=== PATIENT | female | born 1950 | race African-American/Black ===

== ENCOUNTER → 2016-10-07 | Day surgery (SDC) | payer BC ==
[~2016-10-07] MED LIST: AMLODIPINE BESYL5 MG; FLEXERIL10 MG; HYDROCODON-ACE1 EAC5 PO; IBUPROFEN800 MG PO; MULTIPLE VITAM1 EAC1; PRAVASTATIN SOD10 MG PO; PRINIVIL20 M1 PO; [UNRECOGNIZED DRUG - OTHER] PO
--- NOTE | ~2016-10-07 | OR ---
Unit #: [id number] #: [id number] Patient: GREGG PORRAS [id number] [address] [place], [place] [address] [id number] O MR#: [id number] NAME: GREGG PORRAS ROOM: Date of Procedure: 10/07/2016 Admission Date: 10/07/2016 Surgeon: Gee North M.D. : 1950 Attending Physician: Gee North M.D. Referring Physician: Gee North M.D. Primary Care Physician: Caroline Rich OPERATIVE REPORT PROCEDURE PERFORMED Colonoscopy with snare polypectomy. INDICATIONS FOR PROCEDURE The patient with positive FIT test. MEDICATIONS Monitored anesthesia. POSTOPERATIVE FINDINGS 1. Small polyp, 5 mm, sigmoid colon, snared and sent for histopathology. 2. Rest of the colon exam to cecum was normal. 3. Prep was adequate. PLAN Follow up on the pathology report. Repeat colonoscopy in 5 years. DESCRIPTION OF PROCEDURE The patient was explained of the procedure, risks, and benefits along with risks and benefits of anesthesia. She was brought to the endoscopy room. Propofol anesthesia was given. Rectal exam was done, which was normal. Colonoscope was lubricated, passed up the rectum, advanced under direct vision all the way to the cecum. Cecum was identified by ileocecal valve and appendiceal orifice. I then started to pull the scope out carefully looking. Polyp in sigmoid colon was snared and sent for histopathology. I retroflexed in the rectum, small hemorrhoids seen. The scope was gently pulled out. She tolerated it well. Dictated by... Lou Vallecillo/new TD: 10/07/2016 19:23 JOB #: [id number] Unit #: [id number] #: [id number] Patient: GREGG PORRAS OPERATIVE REPORT Page 1 of 1 X Gee North MD PROCEDURE OPERATIVE NOTE
== END | disposition home or self-care (01) ==
LOC: COPS 11:01
DX: D12.5 Benign neoplasm of sigmoid colon (principal); K64.9 Unspecified hemorrhoids; I10 Essential (primary) hypertension; F17.210 Nicotine dependence, cigarettes, uncomplicated; Z87.01 Personal history of pneumonia (recurrent); Z79.899 Other long term (current) drug therapy; Z96.653 Presence of artificial knee joint, bilateral; Z98.890 Other specified postprocedural states
CPT/HCPCS: 88305